=== PATIENT | female | born 1950 | race Caucasian/White ===

== ENCOUNTER 2020-01-09 21:30 | Outpatient (REF) | payer MEDICARE, OTHER, SELFPAY ==
[2020-01-09 22:21] LABS: Hemoglobin A1C 6.4 % (<5.7)
[2020-01-09 22:26] LABS: ALT 27 U/L (14-59); AST 20 U/L (15-37); Albumin 3.6 g/dL (3.4-5.0); Alkaline Phosphatase 81 U/L (46-116); Anion Gap 8.2 mmol/L (3-11); BUN 13 mg/dL (7-18); Bilirubin, Total 0.7 mg/dL (0.2-1.0); CO2 25.8 mmol/L (21.0-32.0); CREATININE 0.94 mg/dL (0.55-1.02); Calcium 8.9 mg/dL (8.5-10.1); Calculated LDL 75 mg/dL (<100); Chloride 104 mmol/L (98-107); Cholesterol 164 mg/dL (<200); Estimated GFR 58.87 (mL/min/1.73m2); Glucose 137 mg/dL (74-106); HDL Cholesterol 67 mg/dL (40-60); Potassium 4.4 mmol/L (3.5-5.1); Sodium 138 mmol/L (136-145); Total Protein 6.5 g/dL (6.4-8.2); Triglyceride 112 mg/dL (<150)
== END 2020-01-09 21:50 ==
LOC: NCHCN 21:30
PROVIDERS: PCP Registered Nurse; Visit Provider Registered Nurse
DX: E11.9 Type 2 diabetes mellitus without complications (principal)
CPT/HCPCS: 80053; 80061; 83036

== ENCOUNTER 2020-04-15 20:11 | Outpatient (REF) | payer MEDICARE, OTHER, SELFPAY ==
[2020-04-15 13:21] LABS: Abs Immature Grans 0.01 10^3/uL (0.0-0.06); Absolute Basophil Count 0.05 10^3/uL (0.0-0.2); Absolute Eosinophil Count 0.04 10^3/uL (0.0-0.7); Absolute Lymphocyte Count 1.04 10^3/uL (1.2-3.4); Absolute Monocyte Count 0.31 10^3/uL (0.1-0.8); Basophils % 1.3; HCT 38.9 % (36.0-46.0); HGB 13.2 g/dL (11.2-15.7); Immature Grans % 0.3; Lymphocytes % 26.3; MCH 31.2 pg (27.0-33.0); MCHC 33.9 % (32.0-36.0); MPV 10.8 fL (8.0-11.0); Monocytes % 7.8; Neutrophils % 63.3; Nucleated RBC 0 %; Platelet Count 161 10^3/uL (130-400); RBC 4.23 10^6/uL (3.93-5.22); RDW 11.8 % (11.7-14.6); RDW-SD 39.8 fL; WBC 3.95 10^3/uL (4.4-10.8)
[2020-04-15 13:44] LABS: COMMENT (LAB VIEW ONLY) 55.29 mg/dL; Microalb ug/mg Crea 11.4 ug/mg Cr
[2020-04-15 13:50] LABS: Hemoglobin A1C 6.6 % (<5.7)
[2020-04-15 14:11] LABS: ALT 26 U/L (14-59); AST 20 U/L (15-37); Albumin 3.6 g/dL (3.4-5.0); Alkaline Phosphatase 88 U/L (46-116); BUN 13 mg/dL (7-18); Bilirubin, Total 0.9 mg/dL (0.2-1.0); Calcium 9.1 mg/dL (8.5-10.1); Calculated LDL 66 mg/dL (<100); Chloride 101 mmol/L (98-107); Cholesterol 150 mg/dL (<200); Estimated GFR 54.66 (mL/min/1.73m2); Glucose 159 mg/dL (74-106); HDL Cholesterol 63 mg/dL (40-60); Sodium 135 mmol/L (136-145); TSH 1.74 uIU/mL (0.36-3.74); Total Protein 6.6 g/dL (6.4-8.2); Triglyceride 107 mg/dL (<150)
[2020-04-15 15:37] LABS: Bilirubin Negative (Negative); Blood Negative (Negative); Clarity Clear (Clear); Glucose Negative (Negative); Ketones Negative (Negative); Leukocyte Esterase Negative (Negative); Nitrite Negative (Negative); Specific Gravity 1.015 (1.005-1.025); Urobilinogen 0.2 EU/dL (Up TO 0.2); pH 5.5 (5-8)
== END 2020-04-15 20:12 | disposition home or self-care (01) ==
LOC: LBN 20:11
PROVIDERS: PCP Registered Nurse; Visit Provider Internal Medicine
DX: E11.9 Type 2 diabetes mellitus without complications (principal); I10 Essential (primary) hypertension; R32 Unspecified urinary incontinence
CPT/HCPCS: 80053; 80061; 81003; 82043; 82570; 83036; 84443; 85025

== ENCOUNTER 2020-09-25 16:25 | Outpatient (REF) | payer MEDICARE, OTHER, SELFPAY ==
[2020-09-25 19:21] LABS: Hemoglobin A1C 6.4 % (<5.7)
[2020-09-25 19:38] LABS: ALT 23 U/L (14-59); AST 27 U/L (15-37); Albumin 3.6 g/dL (3.4-5.0); Alkaline Phosphatase 85 U/L (46-116); Anion Gap 9.8 mmol/L (3-11); BUN 13 mg/dL (7-18); Bilirubin, Total 0.8 mg/dL (0.2-1.0); CO2 25.2 mmol/L (21.0-32.0); Calcium 8.8 mg/dL (8.5-10.1); Calculated LDL 95 mg/dL (<100); Chloride 103 mmol/L (98-107); Cholesterol 184 mg/dL (<200); Estimated GFR 54.66 (mL/min/1.73m2); Glucose 139 mg/dL (74-106); HDL Cholesterol 59 mg/dL (40-60); Potassium 4.3 mmol/L (3.5-5.1); Sodium 138 mmol/L (136-145); Total Protein 6.4 g/dL (6.4-8.2); Triglyceride 152 mg/dL (<150)
== END 2020-09-25 16:26 | disposition home or self-care (01) ==
LOC: LBN 16:25
PROVIDERS: PCP Registered Nurse; Visit Provider Registered Nurse
DX: E11.9 Type 2 diabetes mellitus without complications (principal); I10 Essential (primary) hypertension
CPT/HCPCS: 80053; 80061; 83036

== ENCOUNTER 2024-11-20 17:46 | Outpatient (REF) | payer MEDICARE, SELFPAY ==
[2024-11-20 15:09] LABS: Anion Gap 5.9 mmol/L (3-11); BUN 24 mg/dL (7-18); CO2 27.1 mmol/L (21.0-32.0); Calcium 9.7 mg/dL (8.5-10.1); Chloride 101 mmol/L (98-107); Estimated GFR 42.88 (mL/min/1.73m2); Glucose 164 mg/dL (74-106); Potassium 5.5 mmol/L (3.5-5.1); Sodium 134 mmol/L (136-145)
== END 2024-11-20 17:47 | disposition home or self-care (01) ==
LOC: NCHCN 17:46
PROVIDERS: PCP Registered Nurse; Visit Provider Family Medicine
DX: N18.32 Chronic kidney disease, stage 3b (principal)
CPT/HCPCS: 80048